=== PATIENT | male | born 1985 | race Hispanic/Latino ===

== ENCOUNTER 2021-11-21 21:05 | Emergency (ER) | payer BC ==
[2021-11-21] MEDS ORDERED: Ondansetron ODT 4 MG TAB ONE (22:12)
[2021-11-21] MEDS ORDERED: Ketorolac Tromethamine 30 MG/ML VIAL ONE (22:12)
== END 2021-11-21 22:50 | disposition home or self-care (01) ==
LOC: CSHERS 21:05
DX: R07.89 Other chest pain (principal); J11.1 Influenza due to unidentified influenza virus with other respiratory manifestations
CPT/HCPCS: 71045; 93005; 96372; J1885; Q0162